=== PATIENT | female | born 1955 | race Caucasian/White ===

== ENCOUNTER → 2016-10-12 | Outpatient (CLI) | payer OTHER ==
--- NOTE | 2016-10-12 13:16 | MR ---
EXAMINATION TYPE: MR lumbar spine wo con DATE OF EXAM: 10/12/2016 COMPARISON: NONE HISTORY: Lumbago TECHNIQUE: Multiplanar, multisequence images of the lumbar spine were acquired. FINDINGS: Multilevel degenerative disc disease is seen at L1-L2 and L3-S1. In addition to multiple T2 hyperintense probable left renal cysts with the largest measuring up to 4.7 cm in the superior pole there are two T2 slightly hyperintense to paraspinal musculature lesion is not entirely compatible wi th simple renal cysts measuring 1.3 cm emanating from the posterior cortex of the superior to mid dain e and 2.2 cm emanating from the anterior cortex of the superior pole. T12-L1: Normal disc appearance without desiccation. No herniation, protrusion or disc bulging. No c anal stenosis is present. Foramina are patent bilaterally. L1-L2: There is a left lateral disc herniation with annular tear creating mild left neural foraminal narrowing. No evidence of spinal canal stenosis or right neural foraminal narrowing. L2-L3: Normal disc appearance without desiccation. No herniation, protrusion or disc bulging. No ca nal stenosis is present. Foramina are patent bilaterally. L3-L4: There is a small left paracentral disc protrusion superimposed upon a broad-based disc bulge, minimally impressing upon the ventral thecal sac and creating mild bilateral neural foraminal stenosi s. Ligament of flavum buckling is also appreciated as well as mild facet arthropathy. L4-L5: Small annular fissure is noted as well as tiny central disc protrusion superimposed upon a bro ad-based disc left eccentric disc bulge creating moderate left neural foraminal narrowing and mild ri ght neural foraminal narrowing. This is partially attributable to ligamentum flavum buckling and face t arthropathy. L5-S1: Normal disc appearance without desiccation. No herniation, protrusion or disc bulging. No ca nal stenosis is present. Foramina are patent bilaterally. Lumbar segments are intact. No paraspinal masses are identified. Conus medullaris has a normal appe arance. Small vertebral body hemangioma is seen of S1. IMPRESSION: 1. Small left paracentral disc herniation at L3-L4 with resultant mild bilateral neural foraminal derrell nosis. 2. Left lateral disc herniation at L1-L2 creating mild left neural foraminal stenosis. 3. Small central disc protrusion/herniation superimposed upon a left eccentric disc bulge at L4-5 cre ating moderate left neural foraminal narrowing and mild right neural foraminal narrowing. 5. Multiple probable left simple renal cysts with additional left renal lesions that are indeterminat e and not entirely compatible simple cyst. Further characterization with renal ultrasound or dynamic enhanced CT abdomen is recommended.
== END | disposition home or self-care (01) ==
LOC: RADMRIMAIN 11:47
PROVIDERS: ATTEND Physician Assistant
DX: M48.06 Spinal stenosis, lumbar region (principal); M99.73 Connective tissue and disc stenosis of intervertebral foramina of lumbar region; M51.26 Other intervertebral disc displacement, lumbar region
CPT/HCPCS: 72148

== ENCOUNTER → 2016-11-27 | Outpatient (CLI) | payer OTHER ==
--- NOTE | 2016-11-27 11:18 | US ---
EXAMINATION TYPE: US kidneys/renal and bladder DATE OF EXAM: 11/27/2016 COMPARISON: MRI CLINICAL HISTORY: N28.9 RENAL CYST. Renal lesions seen on MRI on left EXAM MEASUREMENTS: Right Kidney: 9.2 x 4.7 x 5.5 cm Left Kidney: 9.8 x 4.7 x 5.2 cm Right Kidney: Appeared wnl Left Kidney: Multiple cyst lesions scattered throughout kidney, largest upper pole with small septati on= 4.6 x 4.1 x 4.3 cm Bladder: wnl Bilateral Jets seen: Yes There is no evidence for hydronephrosis at this point in time. No nephrolithiasis is seen. No solid masses are identified. The urinary bladder is anechoic. Bilateral ureteral jets are seen. IMPRESSION: Multiple simple appearing cyst left kidney.
== END ==
LOC: RADUSWWP 10:45
PROVIDERS: ATTEND Internal Medicine
DX: N28.1 Cyst of kidney, acquired (principal)
CPT/HCPCS: 76770

== ENCOUNTER → 2018-01-28 | Outpatient (CLI) | payer OTHER ==
--- NOTE | 2018-01-29 14:30 | MM ---
Reason for exam: screening (asymptomatic). Last mammogram was performed 12 years and 10 months ago. History: Patient is postmenopausal. Benign excisional biopsy of the right breast, 1978. Physical Findings: A clinical breast exam by your physician is recommended on an annual basis and results should be correlated with mammographic findings. MG Screening Mammo w CAD Bilateral CC and MLO view(s) were taken. No prior studies available for comparison. The breast tissue is heterogeneously dense. This may lower the sensitivity of mammography. There is a 4mm mass upper inner quadrant on the left at anterior depth. Benign appearing bilateral vascular calcifications. No suspicious abnormality in the right breast. ASSESSMENT: Incomplete: need additional imaging evaluation, BI-RAD 0 RECOMMENDATION: Special view mammogram of the left breast. If lesion persists on supplemental views, image directed ultrasound is recommended. [facility] will attempt to contact patient to return for supplemental views and ultrasound if indicated.
== END ==
LOC: RADMAMWWP 11:06
PROVIDERS: ATTEND Internal Medicine
DX: Z12.31 Encounter for screening mammogram for malignant neoplasm of breast (principal)
CPT/HCPCS: 77067

== ENCOUNTER → 2018-01-30 | Outpatient (CLI) | payer OTHER ==
--- NOTE | 2018-01-31 10:06 | MM ---
Reason for exam: additional evaluation requested from abnormal screening. Last mammogram was performed less than 1 month ago. History: Patient is postmenopausal. Benign excisional biopsy of the right breast, 1978. Physical Findings: Nurse did not find any significant physical abnormalities on exam. MG Work Up Mamm w CAD LT Spot compression CC, spot compression MLO, and LM view(s) were taken of the left breast. Prior study comparison: January 28, 2018, bilateral MG screening mammo w CAD. April 05, 2005, CAD bilateral diagnostic mammogram. The breast tissue is heterogeneously dense. This may lower the sensitivity of mammography. Finding: There is a 5mm and 6mm circumscribed round mass located 4cm and 9cm from the nipple in the upper outer quadrant, anterior and middle position of the left breast. These results were verbally communicated with the patient and result sheet given to the patient on 01/30/18. ASSESSMENT: Suspicious, BI-RAD 4 RECOMMENDATION: Aspiration of the left breast. (10 o'clock) Ultrasound core biopsy of the left breast. (11 o'clock, if aspiration negative, 10 o'clock) Called Dr. Saunders with mammographic findings and has scheduled an appointment for the patient for 01/31/18 at 1:[address] Hightower. Biopsy scheduled for 02/19/18 at 12:20. PRELIMINARY REPORT CALLED AND FAXED TO DR. HIGHTOWER ON 01/31/18.
--- NOTE | 2018-01-31 10:08 | USB ---
Reason for exam: additional evaluation requested from abnormal screening. History: Patient is postmenopausal. Benign excisional biopsy of the right breast, 1978. US Breast Workup Limited LT Left limited breast ultrasound including focal area of concern, retroareolar and axilla demonstrates a 1.1 x 0.3 x 1.1cm mixed lesion at 10 o'clock (aspiration or biopsy recommended), a 0.6 x 0.3 x 0.5cm mixed lesion at 11 o'clock (biopsy recommended and duct ectasia at the nipple. These results were verbally communicated with the patient and result sheet given to the patient on 01/30/18. ASSESSMENT: Suspicious, BI-RAD 4 RECOMMENDATION: Aspiration of the left breast. (10 o'clock) Ultrasound core biopsy of the left breast. (11 o'clock, if aspiration negative, 10 o'clock) Called Dr. Saunders with mammographic findings and has scheduled an appointment for the patient for 01/31/18 at 1:[address] Hightower. Biopsy scheduled for 02/19/18 at 12:20. PRELIMINARY REPORT CALLED AND FAXED TO DR. HIGHTOWER ON 01/31/18.
== END | disposition home or self-care (01) ==
LOC: RADMAMWWP 10:54
PROVIDERS: ATTEND Internal Medicine
DX: R92.8 Other abnormal and inconclusive findings on diagnostic imaging of breast (principal)
CPT/HCPCS: 77065

== ENCOUNTER → 2018-01-31 | Outpatient (CLI) | payer OTHER ==
[2018-01-31 13:28] VITALS: BP 109/60; PULSE 64; RESP 18; TEMP 98.4; BMI 30.9
--- NOTE | 2018-01-31 13:47 | P.GSHP ---
History of Present Illness H&P Date: 01/31/18 Chief Complaint: mammographic abnormality of hte left breast Patient is a 62 year old white female who on a routine screening mammogram was noted to have an area of concern in the left breast. Her last mammogram was in 2002. On this mammogram it was recommended that she have additional views performed of the left breast on the additional view she was noted to have a 5 mm and 6 mm circumscribed round mass located 4 cm at 9 cm from the nipple in the upper outer quadrant, anterior and middle position of the left breast. She subsequently underwent an ultrasound of the left breast on the ultrasound she was noted to have a focal area of concern in the retroareolar and axillary regions. It was recommended she undergo aspiration of the left breast lesion at 10:00 o'clock and ultrasound core biopsy of the left breast lesion at 11:00 if negative at 10 oclock. The patient has not noted any masses or lumps in her breasts. She has no pain in her breast. She does state that the nipple on the left appears to be slightly smaller than it was in the past. Family History: none Hormonal History: menarche: 16 : 2, 2 children, first at 18, breast fed: no menopause: hysterectomy at 20's for cervical dysplasia no cancer BCP:2 years, had a vasectomy hormones: none Past Surgical History: 1. bladder suspension 2. hysterectomy 3. appendectomy 4. shoulder left side Medical History: 1. Fibromyalgia Social History: smoke: 1 PPD since 17 alcohol: none drugs: none - Constitutional Constitutional: Denies chills, Denies fever - EENT Comment: cataracts bilateral Eyes: bilateral blurred vision, denies pain Ears: deny: decreased hearing, tinnitus Ears, nose, mouth and throat: Denies headache, Denies sore throat - Breasts Breasts: bilateral: as per HPI - Cardiovascular Cardiovascular: Denies chest pain, Denies shortness of breath - Respiratory Comment: smoker Respiratory: Denies cough, Denies 7 - Gastrointestinal Gastrointestinal: Denies abdominal pain, Denies diarrhea, Denies nausea, Denies vomiting - Genitourinary (Female) Comment: bladder leakage attempted suspension Genitourinary: Denies dysuria, Denies hematuria - Menstruation Menstruation: Reports post hysterectomy - Musculoskeletal Comment: arthritis - Integumentary Integumentary: Denies pruritus, Denies rash - Neurological Neurological: Denies numbness, Denies weakness - Psychiatric Psychiatric: Denies anxiety, Denies depression - Endocrine Endocrine: Denies fatigue, Denies weight change - Hematologic/Lymphatic Comment: none - Allergic/Immunologic Allergic/Immunologic: Reports seasonal allergies Past Medical History Past Medical History: Fibromyalgia History of Any Multi-Drug Resistant Organisms: None Reported Past Surgical History: Appendectomy, Bladder Surgery, Hysterectomy, Orthopedic Surgery Additional Past Surgical History / Comment(s): bladder sling. shoulder Past Anesthesia/Blood Transfusion Reactions: No Reported Reaction Past Psychological History: No Psychological Hx Reported Smoking Status: Current every day smoker Past Alcohol Use History: None Reported Past Drug Use History: None Reported - Past Family History Father Family Medical History: Myocardial Infarction (ND) Mother Family Medical History: No Reported History Surgical - Exam Vital Signs Temp Pulse Resp BP Pulse Ox 98.4 F 64 18 109/60 97 01/31/18 13:16 01/31/18 13:16 01/31/18 13:16 01/31/18 13:16 01/31/18 13:16 BMI 30.9 - General well developed, well nourished, no distress - Eyes normal ocular movement - ENT no hearing loss, no congestion - Neck no masses, trachea midline - Respiratory normal respiratory effort, clear to auscultation - Cardiovascular Rhythm: regular Heart Sounds: normal: S1, S2 - Abdomen Abdomen: soft, non tender, no guarding, no rigid, no rebound Hernia: reducible, umbilical - Integumentary normal turgar - Neurologic no disoriented, no combative - Musculoskeletal normal gait, normal posture - Psychiatric oriented to time, oriented to person, oriented to place, speech is normal, memory intact breast exam: Right breast: Multi-positional exam, no dominant masses or nodules of concern Right axilla: No adenopathy of concern Left breast: Multi-positional exam no dominant masses or nodules of concern Left axilla: No adenopathy of concern Results mammogram and ultrasound reviewed Assessment and Plan Assessment: Impression: 1. Mammographic/ultrasound abnormality left breast 2. Nicotine dependence 3. Umbilical hernia easily reducible 4. fibromyalgia 5. arthritis Plan: 1. ultrasound biopsy of two sites/aspiration of one site and then ultrasound core biopsy was recommended at that area negative of the 11:00 site, however after discussion with the patient she would prefer the both be done at the same time 2. medical management of medical conditions 3. follow up 1 week after the biopsy CC: DR. Saunders
== END | disposition home or self-care (01) ==
LOC: WWCWWP 12:54
PROVIDERS: ATTEND Surgery
DX: Z53.9 Procedure and treatment not carried out, unspecified reason (principal)

== ENCOUNTER → 2018-02-19 | Day surgery (SDC) | payer OTHER ==
[2018-02-19 11:42] VITALS: BP 136/85; PULSE 67; RESP 16; TEMP 98.3; BMI 30.9
--- NOTE | 2018-02-19 13:03 | USB ---
EXAMINATION TYPE: US discontinued breast bx LT DATE OF EXAM: 02/19/2018 COMPARISON: 01/28/2018 and 01/30/2018 HISTORY: 62-year-old female referred for ultrasound-guided biopsy of the left breast. FINDINGS: Prescanning redemonstrated the 2 lesions in the left breast at 10:00 and 11:00 measuring 13 x 11 and 6 x 4 mm, respectively. Presently, these have the appearance of benign simple cysts. No suspicious in ternal complexity or evident debris as seen previously. Six-month follow-up diagnostic left breast mammogram is recommended to reassess the initial mammograp hic findings. Findings and impression were discussed with the patient. IMPRESSION: BI-RADS 3 - probably benign RECOMMENDATION: 1. Six-month follow-up diagnostic left breast mammogram. This is a canceled ultrasound biopsy procedu re note for findings in the left upper inner quadrant that now have the appearance of simple cysts. 2. Patient should continue monthly self breast exam. 3. This exam should not preclude additional follow-up of suspicious palpable abnormalities.
== END ==
LOC: RADUSWWP 11:21
PROVIDERS: ATTEND Surgery
DX: R92.8 Other abnormal and inconclusive findings on diagnostic imaging of breast (principal); Z53.9 Procedure and treatment not carried out, unspecified reason

== ENCOUNTER → 2018-09-29 | Outpatient (CLI) | payer OTHER ==
--- NOTE | 2018-09-29 08:54 | US ---
EXAMINATION TYPE: US pelvic complete DATE OF EXAM: 09/29/2018 COMPARISON: NONE CLINICAL HISTORY: R10.2 Pelvic pain, Z85.41 Hx cervical ca. Pt states hysterectomy in 1980s for cerv ical CA, Generalized pelvic pain, not on HRT's TECHNIQUE: Transvaginal (TV) and Transabdominal (TA) . Transabdominal sonographic images of the pel vis were acquired. Transvaginal sonographic images were medically necessary to better assess the fol lowing anatomy: Ovaries 1. Uterus: Surgically absent 2. Endometrium: Surgically absent 3. Right Ovary: Obscured by overlying bowel gas 4. Left Ovary: Obscured by overlying bowel gas 5. Bilateral Adnexa: wnl 6. Posterior cul-de-sac: wnl Ovaries unable to be visualized due to overlying bowel gas/ No abnormality could be appreciated to account for pt's symptoms IMPRESSION: 1 postoperative pelvis. Adnexal structures obscured by overlying bowel content without ob vious mass appreciated.
== END ==
LOC: RADUSMAIN 07:55
PROVIDERS: ATTEND Internal Medicine
DX: R10.9 Unspecified abdominal pain (principal); Z98.890 Other specified postprocedural states; Z85.41 Personal history of malignant neoplasm of cervix uteri
CPT/HCPCS: 76830; 76856

== ENCOUNTER → 2018-10-30 | Outpatient (CLI) | payer OTHER ==
--- NOTE | 2018-10-30 13:52 | MM ---
Reason for exam: follow-up at short interval from prior study. Last mammogram was performed 9 months ago. History: Patient is postmenopausal and history of other cancer. US discontinued breast bx LT of the left breast, February 19, 2018. Benign excisional biopsy of the right breast, 1978. Physical Findings: Nurse did not find any significant physical abnormalities on exam. MG 3D Diag Mammo W/Cad LT CC and MLO view(s) were taken of the left breast. Prior study comparison: January 30, 2018, left breast MG work up mamm w CAD LT. January 28, 2018, bilateral MG screening mammo w CAD. The breast tissue is heterogeneously dense. This may lower the sensitivity of mammography. Finding: There are typically benign vascular, round calcifications in the left breast. There is a chronic nodularity in the left breast. There is no dominant lesion. These results were verbally communicated with the patient and result sheet given to the patient on 10/30/18. ASSESSMENT: Benign, BI-RAD 2 RECOMMENDATION: Return to routine screening mammogram schedule for both breasts. Back on schedule for January 2019.
== END | disposition home or self-care (01) ==
LOC: RADMAMWWP 12:48
PROVIDERS: ATTEND Internal Medicine
DX: R92.8 Other abnormal and inconclusive findings on diagnostic imaging of breast (principal)
CPT/HCPCS: 77065; G0279; 77061

== ENCOUNTER → 2019-08-18 | Outpatient (CLI) | payer OTHER ==
--- NOTE | 2019-08-18 13:02 | CT ---
"EXAMINATION TYPE: CT abdomen pelvis wo con DATE OF EXAM: 08/18/2019 COMPARISON: None HISTORY: 64-year-old female Left sided pain with hematuria CT DLP: 536.8 mGycm. Automated exposure control for dose reduction was used. TECHNIQUE: Contiguous axial scanning of the abdomen and pelvis without IV contrast. Coronal and sagit asuncion reconstructions performed. FINDINGS: Heart normal size without pericardial effusion. Lung bases clear without pleural effusion. Ectatic lower descending thoracic aorta 2.8 cm. Tiny hiatal hernia. Marked low attenuation of the hepatic parenchyma. Some fatty sparing along the gallbladder fossa. Noncontrast appearance of the gallbladder, adrenal glands, right kidney, spleen, and pancreas show no abnormality. Multiple cortical lesions of the left kidney measuring up to 3.0 cm. Many of these show intermediate attenuation. A 1.1 cm mixed density cortical lesion posterior left kidney could represent a hemorrhag ic cyst. 2 nonobstructive left renal calculi measuring up to 3 mm. No hydronephrosis. No dilated small bowel, free fluid, or free air. No mesenteric or retroperitoneal lymphadenopathy see n. Small fatty umbilical hernia. Additional midline supraumbilical omental fat-containing hernia jenny uring 2.9 cm wide and 3.8 cm craniocaudal with an abdominal wall defect measuring 1.7 cm wide. Mild fusiform ectasia infrarenal abdominal aorta 2.6 cm with mild atelectasis scar calcifications. Mild overall stool burden. Generalized colonic diverticulosis. There is some focal fat stranding and mild thickening along the mid descending colon, axial image 59. Small foci of air along the anterior bladder wall. Bladder only partially distended. Multiple bilater al pelvic phlebolith. Uterus surgically absent. Suspect visualization of small bilateral ovaries. No abnormal fluid collection in the pelvis or abdomen and pelvic lymphadenopathy. Bones: Moderate to advanced degenerative disc disease L4-L5. Hypertrophic facet arthropathy mid to lo wer lumbar spine. IMPRESSION: 1. Exam positive for mild acute diverticulitis along the mid descending colon. No abscess or free ai r. Follow-up colonoscopy after successful treatment if routine screening is not being performed. 2. Multiple cortical lesions within the left kidney measuring up to 3.0 cm. Many of these show inter mediate attenuation and could represent solid masses or complicated cysts. A 1.1 cm lesion posteriorl y likely represents a hemorrhagic cyst. Recommend 6 month follow-up with contrast to ensure stability and to better characterize. 3. Left-sided nephrolithiasis with a couple 3 mm nonobstructing calculi. 4. Small amount of air along the anterior bladder wall. If no recent instrumentation, correlate to e xclude infection. 5. 5. Small fatty umbilical hernia and additional small fat-containing epigastric midline hernia malik suring 3.8 cm. 6. Marked hepatic steatosis. Tiny hiatal hernia. A [place] level critical message alert has been initiated for Latrice Saunders MD via the [employer] | Critical Results System on 08/18/2019 12:59 PM. This message alert has been sent to Latrice rios MD via the preferences provided by the clinician for the receipt of Radiology Critical Findings. Message ID [id number]."
== END | disposition home or self-care (01) ==
LOC: RADCTMAIN 11:54
PROVIDERS: ATTEND Internal Medicine
DX: K57.92 Diverticulitis of intestine, part unspecified, without perforation or abscess without bleeding (principal); N28.89 Other specified disorders of kidney and ureter; N20.0 Calculus of kidney; K42.9 Umbilical hernia without obstruction or gangrene; K76.0 Fatty (change of) liver, not elsewhere classified; K44.9 Diaphragmatic hernia without obstruction or gangrene
CPT/HCPCS: 74176

== ENCOUNTER → 2019-08-20 | Outpatient (CLI) | payer OTHER ==
[2019-08-21 01:18] LABS: African American GFR (CKD) 69.4 (60.0-200.0); Albumin 4.3 g/dL (3.80-4.90); Albumin/Globulin Ratio 1.95 (1.60-3.17); Anion Gap 6.8 mmol/L (4.00-12.00); Calcium 9.4 mg/dL (8.7-10.3); Carbon Dioxide 27.2 mmol/L (21.6-31.8); Globulin 2.2 g/dL (1.6-3.3); Non-African American GFR(CKD) 59.9 (60.0-200.0); Potassium 4.3 mmol/L (3.5-5.5); Total Bilirubin 0.3 mg/dL (0.2-1.2); Total Protein 6.5 g/dL (6.2-8.2)
[2019-08-21 07:21] LABS: Hepatitis A Antibody IgM Non-Reactive (Non-Reactive); Hepatitis B Core IgM Non-Reactive (Non-Reactive); Hepatitis B Surface Antigen Non-Reactive (Non-Reactive); Hepatitis C IgG Antibody Non-Reactive (Non-Reactive)
== END | disposition home or self-care (01) ==
LOC: LABWHC1 13:53
PROVIDERS: ATTEND Internal Medicine
DX: R94.5 Abnormal results of liver function studies (principal); R10.84 Generalized abdominal pain
CPT/HCPCS: 36415; 80053; 80074

== ENCOUNTER → 2020-07-13 | Outpatient (CLI) | payer OTHER ==
[2020-07-13 19:20] LABS: Basophils # (A) 0.09 X 10*3/uL (0.00-0.10); Basophils % (A) 1.2 %; Eosinophils # (A) 0.38 X 10*3/uL (0.04-0.35); Eosinophils % (A) 5.1 %; HCT 40.9 % (37.2-46.3); HGB 13.2 g/dL (12.0-15.0); Lymphocytes # (A) 3.13 X 10*3/uL (0.90-5.00); MCH 28.8 pg (27.0-32.0); MCHC 32.3 g/dL (32.0-37.0); MCV 89.1 fL (80.0-97.0); Mean Platelet Volume 10.9 fL (9.5-12.2); Monocytes # (A) 0.63 X 10*3/uL (0.20-1.00); Monocytes % (A) 8.5 %; Neutrophils % (A) 42.9 %; Platelet Count 230 X 10*3/uL (140-440); RBC 4.59 X 10*6/uL (4.10-5.20); WBC 7.45 X 10*3/uL (4.50-10.00)
[2020-07-14 00:36] LABS: African American GFR (CKD) 55.7 (60.0-200.0); Albumin 4.5 g/dL (3.80-4.90); Albumin/Globulin Ratio 2.05 (1.60-3.17); Anion Gap 7.8 mmol/L (4.00-12.00); BUN/Creat Ratio 15.83 Ratio (12.00-20.00); Calcium 10.1 mg/dL (8.7-10.3); Carbon Dioxide 26.2 mmol/L (21.6-31.8); Globulin 2.2 g/dL (1.6-3.3); Non-African American GFR(CKD) 48.1 (60.0-200.0); Potassium 4.3 mmol/L (3.5-5.5); Total Bilirubin 0.3 mg/dL (0.3-1.2); Total Protein 6.7 g/dL (6.2-8.2)
[2020-07-14 00:44] LABS: T4, Free (Free Thyroxine) 0.9 ng/dL (0.80-1.80)
== END | disposition home or self-care (01) ==
LOC: LABWHC1 12:24
PROVIDERS: ATTEND Physician Assistant
DX: G62.9 Polyneuropathy, unspecified (principal)
CPT/HCPCS: 36415; 80053; 82306; 82607; 83036; 84207; 84439; 84443; 84481; 85025

== ENCOUNTER → 2020-10-26 | Outpatient (CLI) | payer OTHER ==
[2020-10-26 22:39] LABS: Hemoglobin A1C 6.1 % (4.0-6.0)
[2020-10-27 02:29] LABS: ALT 32 U/L (8-44); AST 36 U/L (13-35); African American GFR (CKD) 61.4 (60.0-200.0); Alkaline Phosphatase 78 U/L (41-126); Bilirubin, Conjugated <0.20 mg/dL (0.20-0.40); Globulin 2.5 g/dL (1.6-3.3); Total Bilirubin 0.4 mg/dL (0.2-1.2)
== END | disposition home or self-care (01) ==
LOC: LABWHC1 12:03
PROVIDERS: ATTEND Internal Medicine
DX: Z01.818 Encounter for other preprocedural examination (principal); R94.31 Abnormal electrocardiogram [ECG] [EKG]; E11.9 Type 2 diabetes mellitus without complications; N28.9 Disorder of kidney and ureter, unspecified; E55.9 Vitamin D deficiency, unspecified
CPT/HCPCS: 36415; 80076; 82306; 82565; 83036; 84520; 93005

== ENCOUNTER → 2021-04-18 | Outpatient (CLI) | payer OTHER ==
--- NOTE | 2021-04-18 08:06 | XR ---
EXAMINATION TYPE: XR wrist limited LT DATE OF EXAM: 04/18/2021 CLINICAL HISTORY: Pain extends into thumb TECHNIQUE: Frontal and lateral images of the left wrist are obtained. COMPARISON: None FINDINGS: There is no acute fracture/dislocation evident in the left wrist. The joint spaces in the left wrist appear within normal limits. The overlying soft tissue appears unremarkable. IMPRESSION: As above.
--- NOTE | 2021-04-18 08:07 | XR ---
EXAMINATION TYPE: XR finger LT DATE OF EXAM: 04/18/2021 COMPARISON: NONE HISTORY: Pain. TECHNIQUE: 3 views left thumb. FINDINGS: Mild to moderate narrowing with mild spurring first interphalangeal joint. No acute displac ed fracture. Overlying soft tissue is unremarkable. IMPRESSION: As above.
== END | disposition home or self-care (01) ==
LOC: RADXRMAIN 07:35
PROVIDERS: ATTEND Internal Medicine
DX: M25.842 Other specified joint disorders, left hand (principal)

== ENCOUNTER → 2022-06-05 | Outpatient (CLI) | payer MEDICARE, OTHER ==
--- NOTE | 2022-06-05 21:39 | BD ---
EXAMINATION TYPE: Axial Bone Density DATE OF EXAM: 06/05/2022 CLINICAL HISTORY: 66 years old Female. ICD-10 CODE: N95.1 POST MENOPAUSAL SYMPTOMS Height: 64.25 Weight: 160 FRAX RISK QUESTIONS: Family History (Parent hip fracture): no History of Fracture in Adulthood: no Secondary Osteoporosis: no Rheumatoid Arthritis: no Current Tobacco Use: yes RISK FACTORS HISTORY OF: Family History of Osteoporosis: no Active: yes Diet low in dairy products/other sources of calcium: no Postmenopausal woman: yes Lost more than 2 inches in height since high school: no Frequent falls: no Poor Health: no MEDICATIONS: Additional Medications: yes pain meds EXAM MEASUREMENTS: Bone mineral densitometry was performed using the [employer] System. Bone mineral density as measured about the Lumbar spine is: ----- L1-L4(G/cm2): 1.450 T Score Values are as follows: ----- L1: 1.2 ----- L2: 1.2 ----- L3: 2.1 ----- L4: 3.8 ----- L1-L4: 2.2 Z Score Values are as follows: ----- L1: 2.6 ----- L2: 2.5 ----- L3: 3.4 ----- L4: 5.2 ----- L1-L4: 3.6 Bone mineral density baseline Bone mineral density about the R hip (g/cm2): 1.074 Bone mineral density about the L hip (g/cm2): 1.080 T Score values are as follows: -----R Neck: 0.3 -----L Neck: 0.1 -----R Total: 0.5 -----L Total: 0.6 Z Score values are as follows: -----R Neck: 1.6 -----L Neck: 1.4 -----R Total: 1.6 -----L Total: 1.6 Bone mineral density baseline FRAX%s: The graph provided illustrates a 6.4% chance for a major osteoporotic fx and a 0.3% chance fo r the hips probability for fx in 10 years time. IMPRESSION: Normal (Values between +1 and -1 indicate normal bone mass). Consider repeating this study in 5 year s or sooner if there is some new clinical indication. NOTE: T-SCORE=SD OF THE YOUNG ADULT MEAN.
--- NOTE | 2022-06-06 15:05 | MM ---
Reason for Exam: Screening (asymptomatic). Last mammogram was performed 4 year(s) and 4 month(s) ago. Patient History: Menarche at age 14. First Full-Term at age 17. Hysterectomy at age 25. Postmenopausal. Other cancer. 1978, Benign Excisional Biopsy on the right side. 02/19/2018, US discontinued breast bx LT on the left side. Risk Values: Layla 5 year model risk: 1.4%. NCI Lifetime model risk: 5.4%. Prior Study Comparison: 01/28/2018 Bilateral Screening Mammogram, [facility]. 01/30/2018 Left Diagnostic Mammogram, [facility]. 10/30/2018 Left Diagnostic Mammogram, [facility]. Tissue Density: The breast tissue is heterogeneously dense. This may lower the sensitivity of mammography. Findings: Analyzed By CAD. Heart appears symmetrical and stable. Benign vascular calcifications present bilaterally. Benign spherical calcifications within the left breast. No significant interval change is evident No suspicious groups of microcalcifications, spiculated or lobular masses, architectural distortion or other secondary signs of malignancy are mammographically apparent. Overall Assessment: Benign, BI-RAD 2 Management: Screening Mammogram of both breasts in 1 year. A negative mammogram report should not preclude additional follow up of suspicious palpable abnormalities. Patient should continue monthly self breast exam. A clinical breast exam by your physician is recommended on an annual basis and results should be correlated with mammographic findings. Electronically signed and approved by: Remberto Aguero D.O. Radiologis
== END | disposition home or self-care (01) ==
LOC: RADMAMWWP 14:00
PROVIDERS: ATTEND Family Medicine
DX: Z12.31 Encounter for screening mammogram for malignant neoplasm of breast (principal); Z78.0 Asymptomatic menopausal state; M81.0 Age-related osteoporosis without current pathological fracture
CPT/HCPCS: 77063; 77067; 77080

== ENCOUNTER 2022-08-29 10:04 | Day surgery (SDC) | payer MEDICARE, OTHER ==
[2022-08-23 11:02] VITALS: BMI 27.8
--- NOTE | 2022-08-28 17:35 | P.HPOR ---
History of Present Illness H&P Date: 08/28/22 Subjective: This is a 65 year old female that presents today for follow up evaluation regarding a several month history of worsening left base of the thumb pain. 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 She denies any numbness and denies any inciting event or injury. She responded well to a left thumb CMC injection in March of 2022 and noticed her symptoms have returned over the last few months. She state the pain in constant and becoming worse, her last injection lasted only a week. Physical Examination: LUE: AIN/PIN/Radial/Ulnar/Median motor intact. Radial/Ulnar/Median SILT. 2+/4 Radial/Ulnar pulses palpated. 5/5 APB, 5/5 FDI. Negative Finkelsteins, positive CMC grind, negative Durkan's compression. Imaging: Hand 3V X-rays taken in office today demonstrate advanced thumb CMC arthritis, worsening of arthritis compared to films in 2021. Impression: 1.) Left thumb CMC arthritis Plan: Diagnosis and treatment options were discussed with the patient. We discussed continued steroid injections vs surgery and she states due to the worsening of her symptoms over the last year and minimal response to steroid injection she w ould like to go forward with left thumb CMC basilar joint arthroplasty. Risks and benefits of surgery including bleeding, infection, damage to surrounding tissue, need for further surgery, residual numbness were discussed and the patient wished to go forward with surgery. Please CC Notes to Dr. Horvath -Mikey Martin DO Orthopedic Hand/Upper Extremity Surgeon Past Medical History Past Medical History: Diabetes Mellitus, Fibromyalgia, Osteoarthritis (OA) Additional Past Medical History / Comment(s): DIET CONTROLLED DM TYPE II. GOUT. CARPAL TUNNEL RADHA. SEASONAL ALLERGIES/OCCASIONAL WHEEZING History of Any Multi-Drug Resistant Organisms: None Reported Past Surgical History: Appendectomy, Bladder Surgery, Hysterectomy, Orthopedic Surgery Additional Past Surgical History / Comment(s): LEFT SHOULDER SURG. RADHA. CATARACT REM. BLADDER SURG. X2 Past Anesthesia/Blood Transfusion Reactions: No Reported Reaction Past Psychological History: No Psychological Hx Reported Smoking Status: Current every day smoker Past Alcohol Use History: None Reported Past Drug Use History: None Reported - Past Family History Father Family Medical History: Myocardial Infarction (RI) Mother Family Medical History: No Reported History Sister(s) Family Medical History: Deep Vein Thrombosis (DVT) Medications and Allergies Home Medications Medication Instructions Recorded Confirmed Type Pregabalin [Lyrica] 75 mg PO BID 01/31/18 08/23/22 History traMADol HCl [Ultram] 100 mg PO TID PRN 01/31/18 08/23/22 History Albuterol Nebulized [Ventolin 2.5 mg INHALATION QID 08/23/22 08/23/22 History Nebulized] Colchicine 0.6 mg PO DIRECTED PRN 08/23/22 08/23/22 History Tiotropium 18 Mcg/Puff [Spiriva] 1 puff INHALATION DAILY 08/23/22 08/23/22 History allopurinoL 100 mg PO DAILY 08/23/22 08/23/22 History Allergies Allergy/AdvReac Type Severity Reaction Status Date / Time No Known Allergies Allergy Verified 08/23/22 10:51 Physical Examination Osteopathic Statement: *. No significant issues noted on an osteopathic structural exam other than those noted in the History and Physical/Consult.
[~2022-08-29 10:04] MED LIST: DEXAMETHASONE SOD PHOSPHATE 4 MG/ML 1 ML VIAL IV ONE; HYDROmorphone 0.5 MG/0.5 ML SYRINGE IVP PRN; LACTATED RINGERS 1,000 ML IV SCH; LIDOCAINE 1% (10MG/ML) FOR IV START INTRADERMA PRN; MIDAZOLAM 2 MG/2 ML VIAL IV PRN; ONDANSETRON 4 MG/2 ML VIAL IVP ONE
[2022-08-29 10:35] LABS: Glucose,Whole Blood 98 mg/dL (70-110)
[2022-08-29] MEDS ORDERED: fentaNYL (PF) 50 MCG/ML 2 ML AMP IVP ONE (10:40)
[2022-08-29] MEDS ORDERED: MIDAZOLAM 2 MG/2 ML VIAL IVP ONE (10:40)
[2022-08-29] MEDS ORDERED: PROPOFOL 10 MG/ML 20 ML VIAL IV ONE (10:58)
[2022-08-29] MEDS ORDERED: MIDAZOLAM 2 MG/2 ML VIAL ONE (10:58)
[2022-08-29] MEDS ORDERED: ROPIVACAINE 5 MG/ML 30 ML VIAL ONE (10:58)
[2022-08-29] MEDS ORDERED: fentaNYL (PF) 50 MCG/ML 2 ML AMP ONE (10:58)
[2022-08-29] MEDS ORDERED: KETAMINE 10 MG/ML 20 ML VIAL ONE (10:58)
--- NOTE | 2022-08-29 12:03 | P.ANPRN ---
Procedure Note - Anesthesia - Nerve Block Performed Left Axillary Time Out Performed: Yes (:39) Date of Procedure: 08/29/22 Procedure Start Time: :39 Procedure Stop Time: :45 Location of Patient: PreOp Indication: Acute Post-Operative Pain, Requested by Surgeon (Dr Martin) Sedation Type: Sedate with meaningful contact maintained Preparation: Sterile Prep Position: Supine Catheter: None Needle Types: Pajunk Needle Gauge: Other (see comment) (22g) Ultrasound used to visualize needle placement: Yes Ultrasound used to observe medication spread: Yes Injectate: 0.5% Ropivacaine (see comment for volume) (24cc) Blood Aspirated: No Pain Paresthesia on Injection Noted: No Resistance on Injection: Normal Image Stored and Saved: Yes Events: Uneventful and Well Tolerated
[2022-08-29 12:08] VITALS: TEMP 97.2
--- NOTE | 2022-08-29 12:18 | P.OP ---
Date of Procedure: 08/29/22 Preoperative Diagnosis: Left thumb CMC arthritis Postoperative Diagnosis: Left thumb CMC arthritis Procedure(s) Performed: Left thumb basilar joint arthroplasty Implants: Arthrex 3.5mm Swivel Lock suture anchor x2 Anesthesia: [facility] regional Surgeon: Mikey Martin Anglesmith #1: Rodrick Velasco Estimated Blood Loss (ml): 0 Pathology: none sent Condition: stable Disposition: PACU Description of Procedure: This is a 67 year old female who presents today for a left thumb CMC basal joint arthroplasty after having failed conservative treatment for severe thumb CMC arthritis. Risks and benefits of surgery were discussed with the patient including bleeding, damage to surrounding tissue, infection, need for further surgery as well as risks of anesthesia including pulmonary embolism and even and the patient wished to proceed with surgical intervention. The patients was seen in the pre-operative area by myself. Consent and H&P were completed and updated. The correct extremity was marked in the pre-operative area by myself a nd all other questions were answered. Patient received a upper extremity nerve block by the department of anesthesia. He then was brought to the operating room by the department of anesthesia. They remained on the portable stretcher and a rolling hand table was brought to the side of the operative extremity. The patient was then drifted off to sleep by the department of anesthesia. A nonsterile tourniquet was then applied to the operative extremity and the left upper extremity was then prepped and draped in normal sterile fashion. Pre-operative time out was performed indicating the correct patient, procedure and laterality. All in the room agreed. Pre-operative antibiotics were given prior to skin incision. The operative extremity was the exsanguinated with an esmarch bandage and the tourniquet was inflated to 250mmHg. Longitudinal incision was made over the left thumb CMC joint with a 15 blade scalpel. Blunt dissection was taken down to subcutaneous tissues with littler scissors taking care to preserve the branches of the superficial radial nerve. Dorsal radial artery was identified proximally in the incision and protected throughout the procedure. Scalpel was then made to incise the thumb CMC joint creating full thickness flaps off of the proximal metacarpal base and trapezium, this plane was further developed with a periosteal elevator. Elevator was then utilized to identify the thumb CMC joint and scaphotrapezial joint. McGlamory elevator was then used to excise the trapezium whole. Guidewire was then introduced down to the laser line at the base of the first m etacarpal through the same incision and was over drilled. Another guidewire was then inserted at the radial base of the first metacarpal near the Insertion of APL and was then over drilled with normal drill guide. A 3.5mm Arthrex SwiveLock anchor was then inserted into the base of the first metacarpal. While holding the thumb in slight traction and full adduction, another 3.5mm Arthrex SwiveLock anchor was inserted into the base of the second metacarpal and the two strands of fibertape were centered across the first metacarpal base to create a sling around the base suspending the thumb metacarpal, good barry purchase was appreciated. The thumb was successfully suspended and full ROM was achieved passively. Suture ends were cut and skin was closed with several interrupted 4-0 Monocryl sutures followed by a running 4-0 Monocryl stitch. Sterile dressing consisting of mastisol and steri strips followed by 4x4s cast padding, and a thumb spica plaster splint was applied. Tourniquet was let down and the hand had brisk cap refill and normal perfusion immediately. The patient was then woken by the department of anesthesia and transferred to PACU in stable condition. Rodrick LIANG was present for the case and assisted in major portions of procedure and protection of vital neurovascular structures. Mikey Martin D.O. Orthopedic Hand/Upper Extremity Surgeon
[2022-08-29 12:50] VITALS: RESP 16
[2022-08-29 13:13] VITALS: BP 147/75; PULSE 52
== END 2022-08-29 13:46 | disposition home or self-care (01) ==
LOC: OR 10:04
PROVIDERS: ATTEND Orthopaedic Surgery Hand Surgery
DX: M18.12 Unilateral primary osteoarthritis of first carpometacarpal joint, left hand (principal); G89.18 Other acute postprocedural pain; E11.9 Type 2 diabetes mellitus without complications; M79.7 Fibromyalgia; M10.9 Gout, unspecified; F17.210 Nicotine dependence, cigarettes, uncomplicated; Z79.1 Long term (current) use of non-steroidal anti-inflammatories (NSAID); Z79.51 Long term (current) use of inhaled steroids; Z79.899 Other long term (current) drug therapy
CPT/HCPCS: 25447; 64415; C1713 ×2; J2250; J1100; J0690; J2405; J3010; J2795; J2704

== ENCOUNTER → 2023-08-28 | Outpatient (CLI) | payer MEDICARE ==
[2023-08-28 12:19] LABS: Basophils # (A) 0.07 X 10*3/uL (0.00-0.10); Eosinophils # (A) 0.33 X 10*3/uL (0.04-0.35); Eosinophils % (A) 4.5 %; HCT 43.4 % (37.2-46.3); HGB 14.1 g/dL (12.0-15.0); Lymphocytes % (A) 30.3 %; MCH 29.1 pg (27.0-32.0); MCHC 32.5 g/dL (32.0-37.0); MCV 89.7 FL (80.0-97.0); Mean Platelet Volume 10.9 FL (9.5-12.2); Monocytes # (A) 0.66 X 10*3/uL (0.20-1.00); Monocytes % (A) 9.1 %; NRBC Per 100 WBC 0 X 10*3/uL (0.00-0.01); Neutrophils # (A) 3.99 X 10*3/uL (1.80-7.70); Neutrophils % (A) 54.8 %; Platelet Count 230 X 10*3/uL (140-440); RBC 4.84 X 10*6/uL (4.10-5.20); RDW 12.8 % (11.5-14.5); WBC 7.27 X 10*3/uL (4.50-10.00)
[2023-08-28 12:28] LABS: ALT 26 U/L (8-44); AST 26 U/L (13-35); Albumin 4.4 g/dL (3.8-4.9); Alkaline Phosphatase 64 U/L (41-126); BUN/Creat Ratio 17.27 Ratio (12.00-20.00); Carbon Dioxide 27.8 mmol/L (21.6-31.8); Chloride 104 mmol/L (96-109); Chol/HDL Ratio 3.05 Ratio; Globulin 2.2 g/dL (1.6-3.3); Glucose 118 mg/dL (70-110); LDL Cholesterol,Calculated 97.4 mg/dL (0.0-131.0); Potassium 4.6 mmol/L (3.5-5.5); Sodium 142 mmol/L (135-145); Total Bilirubin 0.3 mg/dL (0.3-1.2); Total Protein 6.6 g/dL (6.2-8.2); Uric Acid 7.1 mg/dL (2.9-7.7)
== END | disposition home or self-care (01) ==
LOC: LABWHC1 07:20
PROVIDERS: ATTEND Family Medicine
DX: E11.65 Type 2 diabetes mellitus with hyperglycemia (principal); E78.5 Hyperlipidemia, unspecified; R82.993 Hyperuricosuria
CPT/HCPCS: 36415; 80053; 80061; 82043; 82570; 83036; 84443; 84550; 85025

== ENCOUNTER → 2023-10-23 | Outpatient (CLI) | payer MEDICARE, OTHER ==
--- NOTE | 2023-10-23 19:23 | CTL ---
EXAMINATION TYPE: CT Low Dose Lung DATE OF EXAM ORDERED: 10/23/2023 HISTORY: Personal tobacco use. Lung cancer screening CT DLP: 83.[address] CTDI: 2.2 mGy Automated exposure control for dose reduction was used. SCREENING VISIT: Initial COMPARISON: None TECHNIQUE: Low dose computed tomography scan was performed through the chest at 1 mm thick sections a nd reconstructed images in the coronal plane at [address] DIAGNOSTIC QUALITY: Satisfactory FINDINGS: LUNG NODULES: Present, detailed below: 1. Punctate nodule within the anterior left apex. Series 4 image 62. 2. Punctate nodular density anterior lateral left upper lung field. Series 4 image 65. 3. Faint nodular density anterior lateral right upper lung field. Series 4 image 89 Small amount of pleural thickening may be in the lung apices. LUNGS: COPD: Severity: None Fibrosis: Severity: None Lymph nodes: None Other findings: None RIGHT PLEURAL SPACE: Effusion: None Calcification: None Thickening: None Pneumothorax: None LEFT PLEURAL SPACE: Effusion: None Calcification: None Thickening: None Pneumothorax: None HEART: Other: Ascending thoracic aorta at the level the main pulmonary artery measures 3.1 cm. The main pul monary artery at the bifurcation measures 3.1 cm. Heart Size: Normal Coronary calcification: Normal Pericardial effusion: None OTHER FINDINGS: Upper abdomen: Left kidney appears somewhat lobular which may be related to cysts or the adjacent spl een. Consider ultrasound for additional evaluation. Bony thorax: Normal Supraclavicular region: Normal IMPRESSION: Probably benign findings FOLLOW UP CT CHEST RECOMMENDATION: 1. CT CHEST 6 months. 2. Consider ultrasound to evaluate partially visualized left kidney. CT LUNG RAD: Lung-Rad 3 Probably Benign
== END | disposition home or self-care (01) ==
LOC: RADCTMAIN 16:42
PROVIDERS: ATTEND Family Medicine
DX: Z12.2 Encounter for screening for malignant neoplasm of respiratory organs (principal); R91.1 Solitary pulmonary nodule; F17.210 Nicotine dependence, cigarettes, uncomplicated
CPT/HCPCS: 71271